=== PATIENT | male | born 1990 | race Caucasian/White ===

== ENCOUNTER 2016-07-30 02:54 | Emergency (ER) | payer BC ==
[~2016-07-30] VITALS: Ht 170.2 cm; Wt 95.5 kg
[~2016-07-30 02:54] MED LIST: 00186-0370-20 IH; ALBUTEROL1.25 MG/3 IH; ANTIBIOTIC FOR SINUS; DULERA1 AR1 IH; FLONASE NASAL S16 GM NS; PREDNISONE20 MG PO; PROVENTIL0.09 MG/A1 IH; SINGULAIR 110 MG/TAB PO; ZITHROMAX 250M250 MG PO; ZYRTEC 10MG10 MG PO
[2016-07-30 02:57] VITALS: BP 151/82; TEMP 98.6
[2016-07-30] MEDS ORDERED: ZYRTEC 10MG10 MG PO (03:02)
[2016-07-30] MEDS ORDERED: SINGULAIR 110 MG/TAB PO (03:03)
[2016-07-30 03:45] VITALS: PULSE 84
== END 2016-07-30 03:47 | disposition home or self-care (01) ==
LOC: COL.ER 02:54
DX: R21 Rash and other nonspecific skin eruption (principal); J45.909 Unspecified asthma, uncomplicated